=== PATIENT | female | born 1955 | race Caucasian/White ===

== ENCOUNTER 2016-04-02 13:14 | Emergency (ER) | payer OTHER ==
[~2016-04-02] VITALS: Wt 100.0 kg
[~2016-04-02 13:14] MED LIST: ASPI-535 PO; VERA120T78 PO
[2016-04-02] MEDS ORDERED: DICY10CA60 PO (14:54)
[2016-04-02] MEDS ORDERED: CIPR500T4 PO (14:54)
[2016-04-02] MEDS ORDERED: ONDA4TAB8 PO (14:54)
--- NOTE | 2016-04-02 15:04 | ERD ---
ER Documentation Chief Complaint Date/Time DATE: 04/02/16 TIME: 14:59 Chief Complaint DIARRHEA AND HEADACHE FROM [facility]. NO DYSURIA. HPI This is a 60-year-old female presents to the ER with a diarrhea that started today. Patient was in [facility] for 1 week and today she developed watery nonbloody diarrhea. Her has similar symptoms. She has nausea however denies vomiting. Patient denies fevers or chills. She denies any weakness, dizziness. Patient tried Imodium however did not work. ROS 12 point review of systems was done, all negative except per HPI. Medications Home Meds Active Scripts Ondansetron Hcl* (Zofran*) 4 Mg Tablet, 4 MG PO Q6H for NAUSEA AND/OR VOMITING, #30 TAB Prov:ANICETO CABRERA 04/02/16 Dicyclomine Hcl* (Bentyl*) 10 Mg Capsule, 10 MG PO QID for 3 Days, CAP Prov:ANICETO CABRERA 04/02/16 Ciprofloxacin Hcl* (Ciprofloxacin Hcl*) 500 Mg Tablet, 500 MG PO BID for 3 Days , TAB Prov:ANICETO CABRERA 04/02/16 Reported Medications Aspirin Ec (Aspir 81) 81 Mg Tablet.dr, 81 MG PO DAILY 07/09/11 Verapamil Hcl (Verapamil Hcl) 120 Mg Tablet, 120 MG PO DAILY 07/09/11 Allergies Allergies: Uncoded Allergies: PENICILLIN (Allergy, 07/09/11) PMhx/Soc History of Surgery: Yes (RIGHT BREAST CYST, GALLBLADDER, TUBAL LIGATION, KIDNEY STONE) Anesthesia Reaction: No Hx Neurological Disorder: Yes (TIA) Hx Respiratory Disorders: No Hx Cardiac Disorders: Yes (HTN, DM) Hx Psychiatric Problems: No Hx Miscellaneous Medical Probl: No Hx Alcohol Use: No Hx Substance Use: No Hx Tobacco Use: No Physical Exam Vitals Vital Signs Date Time Temp Pulse Resp B/P Pulse Ox O2 Delivery O2 Flow Rate FiO2 04/02/16 13:20 97.8 75 20 160/81 96 Physical Exam GENERAL: The patient is well developed and appropriate for usual state of health , in no apparent distress. HEENT: Atraumatic. CHEST: Clear to auscultation bilaterally. There are no rales, wheezes or rhonchi. HEART: Regular rate and rhythm. No murmurs, clicks, rubs or gallops. ABDOMEN: Soft, nontender and nondistended. Good bowel sounds. No rebound or guarding. No gross peritonitis. No gross organomegaly or masses. No Rhoades sign or McBurney point tenderness. EXTREMITIES: Equal pulses bilaterally. There is no peripheral clubbing, cyanosis or edema. No focal swelling or erythema. Full range of motion. Grossly neurovascularly intact. NEURO: Alert and oriented. SKIN: There is no apparent rash or petechia. The skin is warm and dry. Procedures/MDM Differential Diagnosis includes but is not limited to; Acute gastroenteritis, small bowel obstruction, appendicitis, DKA, ICH, meningitis. This is likely viral gastroenteritis. Patient appears well hydrated. Clinical suspicion for infectious etiology such as meningitis is low as patient does not appear toxic. Clinical suspicion for acute abdomen is low as physical examination is benign. Plan was discussed with the patient. Patient needs to follow up with PCP within 1-2 days, or return to ER if symptoms worsen. Departure Diagnosis: Primary Impression: Travelers' diarrhea Condition: Stable Patient Instructions: Traveler's Diarrhea (6Y-Adult) Additional Instructions: Llame al doctor MAANA y ferny song CHACHA PARA DENTRO DE 1-2 ANGEL.Dgale a la secretaria que nosotros le instruimos hacer esta chacha.Avise o llame si [place] condicin se empeora antes de la chacha. Regresa aqui si peor o no mejor. ANICETO CABRERA Apr 02, 2016 15:04
[2016-04-02 15:21] VITALS: BP 142/68; PULSE 64; RESP 18; TEMP 98.6
== END 2016-04-02 15:37 | disposition home or self-care (01) ==
LOC: FTE 13:14
DX: R19.7 Diarrhea, unspecified (principal); E11.9 Type 2 diabetes mellitus without complications; I10 Essential (primary) hypertension; Z79.82 Long term (current) use of aspirin
CPT/HCPCS: 99284